=== PATIENT | female | born 1970 | race Two or more races ===

== ENCOUNTER 2017-03-08 17:22 | Emergency (ER) | payer MEDICAID ==
[2017-03-08] MEDS ORDERED: ACETAMINOPHEN 500 MG TAB PO ONE (17:39)
[2017-03-08] MEDS ORDERED: NS 1,600 ML IV ONE (18:09)
--- NOTE | 2017-03-08 18:12 | EDPHY ---
H & P Stated Complaint: flu like symptoms/tachy/feverish/cough Time Seen by Provider: 03/08/17 18:11 HPI/ROS: HPI: This is a 46-year-old female presents with Chief Complaint: flu like symptoms/tachy/feverish/cough Location: Chest Quality: Cough Duration: 5 days Signs and Symptoms: no shortness of breath at rest, no shortness of breath on exertion, + nonproductive cough, no chest pain, no palpitations, no lower extremity edema, no wheezing, no orthopnea, no paroxysmal nocturnal dyspnea, no fever, no injury/trauma, no hemoptysis, + body aches, + fatigue, no sore throat Timing: Sudden onset, constant Severity: Moderate Context: Patient is a tobacco user, did not receive influenza vaccine this year , presents with sudden onset of nonproductive cough, fever, body aches, fatigue x5 days. She has been simply lying in bed and not taking any medication. + poor appetite. No history of lung disease. Lives with her friend, Katharine. Patient reports she has not eaten anything today. No recent travel outside of the country. Denies being homeless. Modifying Factors: None Comment: ROS: see HPI Constitutional: No fever, no chills, no weight loss Eyes: No blurred vision Respiratory: No shortness of breath, no cough Cardiovascular: No chest pain, no palpitations, no lower extremity edema Gastrointestinal: No nausea, no vomiting, no diarrhea Genitourinary: No dysuria Extremities: No myalgias Neurologic: No weakness, no numbness Skin: No rashes Hematologic: No bruising, no bleeding MEDICAL/SURGICAL/SOCIAL HISTORY: Medical history: Generally healthy. Does not take any regular medications. Surgical history: Denies Social history: Unemployed. CONSTITUTIONAL: Ill untidy adult female, nontoxic in appearance, awake and alert, no obvious distress HEENT: Atraumatic and normocephalic, PERRL, EOMI. Tympanic membranes clear. Oropharynx clear, no exudate and moist pink mucosa. Airway patent. No lymphadenopathy. No meningismus. Cardiovascular: Normal S1/S2, regular rate, regular rhythm, without murmur rub or gallop. PULMONARY/CHEST: Symmetrical and nontender. Clear to auscultation bilaterally diminished bases. Fair air movement. No accessory muscle usage. ABDOMEN: Soft, nondistended, nontender, no rebound, no guarding, no peritoneal signs, no masses or organomegaly. No CVAT. EXTREMITIES: 2/2 pulses, strength 5/5, no deformities, no clubbing, no cyanosis or edema. No calf tenderness. NEUROLOGICAL: no focal neuro deficits. GCS 15. SKIN: Warm and dry, no erythema. no rash. Good capillary refill. Source: Patient Exam Limitations: No limitations - Personal History LMP (Females 10-55): Over 28 Days Ago Current Tetanus/Diphtheria Vaccine: Yes - Medical/Surgical History Hx Asthma: No Hx Chronic Respiratory Disease: No Hx Diabetes: No Hx Cardiac Disease: No Hx Renal Disease: No Hx Cirrhosis: No Hx Alcoholism: No Hx HIV/AIDS: No Hx Splenectomy or Spleen Trauma: No Other PMH: unknown - Social History Smoking Status: Current every day smoker Constitutional: Initial Vital Signs Temperature (C) 37.6 C 03/08/17 17:27 Heart Rate 128 H 03/08/17 17:27 Respiratory Rate 20 03/08/17 17:27 Blood Pressure 157/103 H 03/08/17 17:27 O2 Sat (%) 93 03/08/17 17:27 O2 Delivery Mode Room Air Allergies/Adverse Reactions: aspirin Allergy (Verified 03/08/17 17:26) Home Medications: Medication Instructions Recorded Acidophylis 03/08/17 Albuterol [Proventil] 1 - 2 puffs IH Q4 PRN #1 aerosol 03/08/17 Benzonatate [Tessalon Pearles (RX)] 100 mg PO Q4 PRN #15 cap 03/08/17 levOFLOXACIN [levAQUIN (*)] 750 mg PO DAILY #7 tab 03/08/17 Medical Decision Making - Diagnostics Imaging Results: Imaging Impressions Chest X-Ray 03/08/17 18:10 Impression: 1. Patchy bibasilar infiltrates and right perihilar infiltrates. Consider pulmonary edema or pneumonia. ED Course/Re-evaluation: Chest x-ray, labs, IV fluids, oral medications ordered Given NS 30 ml/kg, acetaminophen and DuoNeb + FLU B; not a Tamiflu candidate Meet SIRS criteria with tachycardia and O2 sats 93% on room air upon arrival. Chest x-ray shows bilateral opacities; IV Levaquin given Labs reviewed and show no leukocytosis; acute kidney injury; electrolyte imbalance No signs of lactic acidosis Repeat vital signs show tachycardia resolved Patient prefers to go home versus being admitted to the hospital which I offered her. She advises a close follow up with primary care provider early next week as well as compliance on her medications. Curb 65 score is low risk; appropriate for outpatient treatment O2 sats 96% on room air upon arrival. Patient reports that she feels better. This patient was seen under the supervision of my secondary supervising physician. I evaluated care for this patient independently. Discussed this patient with Dr. Rome who did not see the patient. Patient's presentation, labs/imaging, treatment and plan of care were discussed with secondary supervising physician. Differential Diagnosis: Adult fever including but not limited to viral syndromes including influenza, urinary tract infection, pneumonia and sepsis. - Data Points Laboratory Results: Laboratory Results 03/08/17 18:25 03/08/17 18:25 03/08/17 03/08/17 03/08/17 18:25 18:25 18:25 WBC 7.37 10^3/uL 10^3/uL (3.80-9.50) RBC 4.60 10^6/uL 10^6/uL (4.18-5.33) Hgb 12.4 g/dL L g/dL (12.6-16.3) Hct 37.2 % L % (38.0-47.0) MCV 80.9 fL L fL (81.5-99.8) MCH 27.0 pg L pg (27.9-34.1) MCHC 33.3 g/dL g/dL (32.4-36.7) RDW 14.6 % % (11.5-15.2) Plt Count 222 10^3/uL 10^3/uL (150-400) MPV 9.7 fL fL (8.7-11.7) Neut % (Auto) 76.2 % H % (39.3-74.2) Lymph % (Auto) 16.4 % % (15.0-45.0) [place] % (Auto) 6.8 % % (4.5-13.0) Eos % (Auto) 0.0 % L % (0.6-7.6) Baso % (Auto) 0.3 % % (0.3-1.7) Nucleat RBC Rel Count 0.0 % % (0.0-0.2) Absolute Neuts (auto) 5.62 10^3/uL 10^3/uL (1.70-6.50) Absolute Lymphs (auto) 1.21 10^3/uL 10^3/uL (1.00-3.00) Absolute Monos (auto) 0.50 10^3/uL 10^3/uL (0.30-0.80) Absolute Eos (auto) 0.00 10^3/uL L 10^3/uL (0.03-0.40) Absolute Basos (auto) 0.02 10^3/uL 10^3/uL (0.02-0.10) Absolute Nucleated RBC 0.00 10^3/uL 10^3/uL (0-0.01) Immature Gran % 0.3 % % (0.0-1.1) Immature Gran # 0.02 10^3/uL 10^3/uL (0.00-0.10) VBG Lactic Acid 1.3 mmol/L mmol/L (0.7-2.1) Sodium 136 mEq/L mEq/L (135-145) Potassium 3.5 mEq/L mEq/L (3.5-5.2) Chloride 101 mEq/L mEq/L (97-110) Carbon Dioxide 22 mEq/l mEq/l (22-31) Anion Gap 13 mEq/L mEq/L (8-16) BUN 10 mg/dL mg/dL (7-23) Creatinine 0.7 mg/dL mg/dL (0.6-1.0) Estimated GFR > 60 Glucose 85 mg/dL mg/dL (70-100) Calcium 9.0 mg/dL mg/dL (8.5-10.4) Total Bilirubin 0.1 mg/dL mg/dL (0.1-1.4) AST 27 IU/L IU/L (14-46) ALT 31 IU/L IU/L (9-52) Alkaline Phosphatase 90 IU/L IU/L (38-126) Total Protein 6.9 g/dL g/dL (6.3-8.2) Albumin 3.8 g/dL g/dL (3.5-5.0) Nasal Influenza A PCR Nasal Influenza B PCR 03/08/17 17:00 WBC RBC Hgb Hct MCV MCH MCHC RDW Plt Count MPV Neut % (Auto) Lymph % (Auto) [place] % (Auto) Eos % (Auto) Baso % (Auto) Nucleat RBC Rel Count Absolute Neuts (auto) Absolute Lymphs (auto) Absolute Monos (auto) Absolute Eos (auto) Absolute Basos (auto) Absolute Nucleated RBC Immature Gran % Immature Gran # VBG Lactic Acid Sodium Potassium Chloride Carbon Dioxide Anion Gap BUN Creatinine Estimated GFR Glucose Calcium Total Bilirubin AST ALT Alkaline Phosphatase Total Protein Albumin Nasal Influenza A PCR NEGATIVE FOR FLU A (NEGATIVE) Nasal Influenza B PCR FLU B DETECTED H (NEGATIVE) Medications Given: Levofloxacin/Dextrose (Levaquin 750 Mg (Premix)) 150 mls @ 100 mls/hr IV EDNOW ONE PRN Reason: Protocol Stop: 03/08/17 20:39 Last Admin: 03/08/17 19:29 Dose: 150 mls Discontinued Medications Acetaminophen (Tylenol) 1,000 mg PO EDNOW ONE Stop: 03/08/17 17:40 Last Admin: 03/08/17 17:42 Dose: 1,000 mg Albuterol/Ipratropium (Duoneb) 3 ml IH EDNOW ONE Stop: 03/08/17 18:17 Last Admin: 03/08/17 18:48 Dose: 3 ml Sodium Chloride (Ns) 1,600 mls @ 3,200 mls/hr 30 ml/kg infuse over 30 min ( 1600 ml) IV EDNOW ONE PRN Reason: Protocol Stop: 03/08/17 18:38 Last Admin: 03/08/17 18:48 Dose: 1,600 mls Departure - Departure Disposition: Home, Routine, Self-Care Clinical Impression: Influenza B Community acquired pneumonia Qualifiers: Laterality: unspecified laterality Qualified Code(s): J18.9 - Pneumonia, unspecified organism Condition: Good Instructions: Influenza (ED), Community Acquired Pneumonia (ED) Additional Instructions: Please drink plenty of fluids of a minimal of 8-10 glasses per day to prevent dehydration. Take Tylenol 650 mg every 4 hours and/or Ibuprofen 600 mg every 8 hours with food as needed for pain. Follow-up with your primary care provider early next week. Please take all medications as directed until complete. Stop smoking cigarettes. Referrals: Kathy Moscoso MD [Primary Care Provider] - 2-3 days without fail Prescriptions: Albuterol [Proventil] 1 - 2 puffs IH Q4 PRN #1 aerosol PRN Reason: Short Of Breath/Dyspnea Benzonatate [Tessalon Pearles (RX)] 100 mg PO Q4 PRN #15 cap PRN Reason: Cough, Moderate levOFLOXACIN [levAQUIN (*)] 750 mg PO DAILY #7 tab
[2017-03-08] MEDS ORDERED: IPRATROPIUM/ALBUTEROL 3 ML DEYVIAL IH ONE (18:16)
[2017-03-08 18:57] LABS: PLATELET COUNT 222 10^3/uL (150-400)
[2017-03-08] MEDS ORDERED: OXYCODONE/APAP 5/325 TAB PO ONE (20:27)
[2017-03-08 21:22] VITALS: BP 144/88; PULSE 78; RESP 18; TEMP 99.5; O2SAT 93
== END 2017-03-08 21:22 | disposition home or self-care (01) ==
DX: J10.1 Influenza due to other identified influenza virus with other respiratory manifestations (principal); J18.9 Pneumonia, unspecified organism; F17.200 Nicotine dependence, unspecified, uncomplicated; E86.9 Volume depletion, unspecified
CPT/HCPCS: 96365; 96366; J1956